=== PATIENT | female | born 1955 | race Caucasian/White ===

== ENCOUNTER 2017-04-28 12:20 | Emergency (ER) | payer BC ==
[~2017-04-28] VITALS: Ht 170.2 cm; Wt 59.0 kg
--- NOTE | 2017-04-28 12:30 | NUR ---
PT BIBRA FROM HOME, C/O RIGHT SIDE OF HEAD LACERATION, BILTAERAL WRIST PAIN, RIGHT SHOULDER PAIN S/P GLF. NEGATIVE KO. RESPIRATIONS EVEN AND UNLABORED. NEURO INTACT. CMS WNL. PLACED ON MONITOR. AWAITING MD FOR EVAL.
[2017-04-28] MEDS ORDERED: ACETAMINOPHEN ES 500 MG TABLET PO ONE (13:00)
[2017-04-28] MEDS ORDERED: ACETAMINOPHEN ES 500 MG TABLET ONE ×2 (13:01→13:04)
--- NOTE | 2017-04-28 13:10 | NUR ---
ice pack to left ankle and right wrist for comfort
--- NOTE | 2017-04-28 13:20 | NUR ---
PATIENT TRANSPORTED FOR CT VIA GURNEY, PATIENT REMAINS IN STABLE CONDITION AT THIS TIME.
[2017-04-28 14:37] VITALS: BP 120/85
--- NOTE | 2017-04-28 14:46 | NUR ---
Patient discharged to home in stable condition. Written and verbal after care instructions given. Patient verbalizes understanding of instruction. Pt ambulatory with stable gait. Neuro intact.
== END 2017-04-28 14:46 | disposition home or self-care (01) ==
LOC: ER 12:22
DX: S01.01XA Laceration without foreign body of scalp, initial encounter (principal); S93.402A Sprain of unspecified ligament of left ankle, initial encounter; S90.512A Abrasion, left ankle, initial encounter; S49.91XA Unspecified injury of right shoulder and upper arm, initial encounter; J45.909 Unspecified asthma, uncomplicated; M85.80 Other specified disorders of bone density and structure, unspecified site; W10.9XXA Fall (on) (from) unspecified stairs and steps, initial encounter; Y93.01 Activity, walking, marching and hiking; Y92.89 Other specified places as the place of occurrence of the external cause; Y99.9 Unspecified external cause status
CPT/HCPCS: 70450-TC; 73030-TC; 73110; 73610-TC; A4606; A6402; Z7610